=== PATIENT | female | born 1985 | race Two or more races ===

== ENCOUNTER → 2017-12-31 | Emergency (ER) | payer OTHER ==
[~2017-12-31] VITALS: Ht 165.1 cm; Wt 88.5 kg
[~2017-12-31] MED LIST: AUGMENTIN1 TAB.CHE3; PEPCID20 MG; PRENATAL + DHA1 EAC1
== END | disposition home or self-care (01) ==
LOC: ER 08:46
DX: O26.892 Other specified pregnancy related conditions, second trimester (principal); O99.342 Other mental disorders complicating pregnancy, second trimester; R42 Dizziness and giddiness; R51 Headache; F41.1 Generalized anxiety disorder; Z34.82 Encounter for supervision of other normal pregnancy, second trimester

== ENCOUNTER 2018-05-31 05:55 | Inpatient (IN) | payer OTHER ==
[~2018-05-31] VITALS: Ht 165.1 cm; Wt 3.2 kg
[2018-06-03] MEDS ORDERED: ACETAMINOPHEN500 M1 PO (13:09)
[2018-06-03] MEDS ORDERED: IBUPROFEN800 MG PO (13:09)
== END 2018-06-03 14:41 | DRG 785 ==
LOC: O/R 05:55 → OB/GYN 05:55 → SURH 10:00 → OB/GYN 13:14
PROVIDERS: ADMIT Obstetrics & Gynecology
PROC: 0UL70ZZ Occlusion of Bilateral Fallopian Tubes, Open Approach (ICD-10-PCS; 2018-05-31)
PROC: 4A1HXCZ Monitoring of Products of Conception, Cardiac Rate, External Approach (ICD-10-PCS; 2018-05-31)
PROC: 10D00Z1 Extraction of Products of Conception, Low, Open Approach (ICD-10-PCS; principal; 2018-05-31 10:00)
DX: O82 Encounter for cesarean delivery without indication (principal); Z3A.38 38 weeks gestation of pregnancy; Z37.0 Single live birth; Z30.2 Encounter for sterilization

== ENCOUNTER 2018-06-23 12:08 | Emergency (ER) | payer OTHER ==
[~2018-06-23] VITALS: Ht 165.1 cm; Wt 75.3 kg
[~2018-06-23 12:08] MED LIST changes: +ACETAMINOPHEN500 M1 PO; +IBUPROFEN800 MG PO
== END 2018-06-23 13:57 | disposition home or self-care (01) ==
LOC: ER 12:08
DX: T23.201A Burn of second degree of right hand, unspecified site, initial encounter (principal); X11.8XXA Contact with other hot tap-water, initial encounter; Y93.89 Activity, other specified; Y92.89 Other specified places as the place of occurrence of the external cause; Y99.8 Other external cause status

== ENCOUNTER 2019-02-09 09:49 | Emergency (ER) | payer OTHER ==
[~2019-02-09] VITALS: Ht 165.1 cm; Wt 86.2 kg
[2019-02-09] MEDS ORDERED: ZANAFLEX2 M1 (10:00)
[2019-02-09] MEDS ORDERED: CELEBREX50 MG (10:00)
== END 2019-02-09 14:25 | disposition home or self-care (01) ==
LOC: ER 09:49
DX: R10.12 Left upper quadrant pain (principal); N39.0 Urinary tract infection, site not specified

== ENCOUNTER 2019-02-12 08:20 | Inpatient (IN) | payer OTHER ==
[~2019-02-12] VITALS: Ht 165.1 cm; Wt 86.2 kg
[~2019-02-12 08:20] MED LIST changes: +CELEBREX50 MG; +ZANAFLEX2 M1
--- NOTE | 2019-02-12 08:31 | NUR ---
PACIENTE ALERTA Y ORIENTADA X3 REFIERE VOMITOS DESDE EL LUNES, CON DOS EPISODIOS HACEN 30 MINUTOS, SE UBICA EN AREA DE OBSERVACION PARA SER EVALUADA POR MEDICO.
--- NOTE | 2019-02-12 09:16 | NUR ---
SE ORIENTA A PTE SOBRE PROCESO DE VENOPUNCION, BETSY DE MUESTRAS, ADMINISTRACION DE MED IV PTE REFIERE ENTENDER INF RE POR RN DE TURNO. PTE SE ORIENTA SOBRE PROCESO DE NPO. PTE SE MANTIENE BAJO OBSERVACION RECIBIENDO TRATAMIENTO MEDICO.
--- NOTE | 2019-02-12 15:18 | NUR ---
SE RECIBE PT ALERTA Y ORIENTADA EN TIEMPO LUGARY PERSONA, AL MMENTO CON [id number] A 125ML/HR IVF PATENTE,.AREA NATALIYA DE EDEMA Y EREITEMA. PT EN BASILIO CON BARANDAS LEEVADAS Y TIMBRE ACCESIBLE. PENDIENTE RE EVALUACION DE MEDICINA INTERNA CON DR Bridgette BLACK.
[2019-02-16] MEDS ORDERED: PEPCID AC20 MG PO (16:35)
[2019-02-16] MEDS ORDERED: INTESTINEX680 M1 PO (16:35)
[2019-02-16] MEDS ORDERED: CEFDINIR300 MG PO (16:35)
== END 2019-02-16 17:50 | disposition home or self-care (01) | DRG 392 ==
LOC: ER 08:20 → SEC-K 18:58 → SURH 02-13 15:49 → MEDJ 02-13 15:55
PROVIDERS: ADMIT Internal Medicine
PROC: BT4JZZZ Ultrasonography of Kidneys and Bladder (ICD-10-PCS; principal; 2019-02-12)
PROC: BW28ZZZ Computerized Tomography (CT Scan) of Head (ICD-10-PCS; 2019-02-12)
DX: K29.00 Acute gastritis without bleeding (principal); N17.8 Other acute kidney failure; B37.41 Candidal cystitis and urethritis; E86.0 Dehydration; E87.8 Other disorders of electrolyte and fluid balance, not elsewhere classified; R42 Dizziness and giddiness; G44.89 Other headache syndrome

== ENCOUNTER 2019-03-24 10:48 | Inpatient (IN) | payer OTHER ==
[~2019-03-24] VITALS: Ht 165.1 cm; Wt 83.5 kg
[~2019-03-24 10:48] MED LIST changes: +CEFDINIR300 MG PO; +INTESTINEX680 M1 PO; +PEPCID AC20 MG PO
[2019-04-02] MEDS ORDERED: ALPRAZOLAM0.25 MG PO (08:01)
[2019-04-02] MEDS ORDERED: Neurin-Sl Tablet Sl SL (08:01)
[2019-04-02] MEDS ORDERED: INTESTINEX680 M1 PO (08:01)
[2019-04-02] MEDS ORDERED: FOLIC ACID1 MG PO (08:01)
[2019-04-02] MEDS ORDERED: LEVAQUIN500 MG PO (08:01)
== END 2019-04-02 13:35 | disposition home or self-care (01) | DRG 690 ==
LOC: ER 10:48 → MEDI 20:49 → MEDJ 20:49 → MEDI 03-25 00:06 → MEDJ 03-26 14:32
PROVIDERS: ADMIT Internal Medicine
PROC: 8E0ZXY6 Isolation (ICD-10-PCS; principal; 2019-03-24)
PROC: BT43ZZZ Ultrasonography of Bilateral Kidneys (ICD-10-PCS; 2019-03-24)
PROC: BW21ZZZ Computerized Tomography (CT Scan) of Abdomen and Pelvis (ICD-10-PCS; 2019-03-24)
DX: N39.0 Urinary tract infection, site not specified (principal); A04.72 Enterocolitis due to Clostridium difficile, not specified as recurrent; E86.0 Dehydration; N76.0 Acute vaginitis; F41.8 Other specified anxiety disorders

== ENCOUNTER 2022-02-02 10:29 | Outpatient (CLI) | payer OTHER ==
[~2022-02-02 10:29] MED LIST changes: +ALPRAZOLAM0.25 MG PO; +FOLIC ACID1 MG PO; +LEVAQUIN500 MG PO; +Neurin-Sl Tablet Sl SL
== END 2022-02-02 10:36 | disposition home or self-care (01) ==
LOC: RAD 10:29
PROVIDERS: ATTEND Psychiatry & Neurology Neurology
DX: M19.90 Unspecified osteoarthritis, unspecified site (principal)

== ENCOUNTER 2022-04-19 09:39 | Emergency (ER) | payer OTHER ==
[~2022-04-19] VITALS: Ht 160 cm; Wt 88.0 kg
[2022-04-19] MEDS ORDERED: BACLOFEN20 MG PO (10:01)
== END 2022-04-19 12:25 | disposition home or self-care (01) ==
LOC: ER 09:39
DX: M54.2 Cervicalgia (principal); V43.52XA Car driver injured in collision with other type car in traffic accident, initial encounter; Y93.9 Activity, unspecified; Y92.413 State road as the place of occurrence of the external cause; M54.50 Low back pain, unspecified; Z88.8 Allergy status to other drugs, medicaments and biological substances; M79.7 Fibromyalgia

== ENCOUNTER 2022-07-05 12:31 | Outpatient (CLI) | payer OTHER ==
[~2022-07-05 12:31] MED LIST changes: +BACLOFEN20 MG PO
== END 2022-07-05 12:35 | disposition home or self-care (01) ==
LOC: SONOGRAMA 12:31
PROVIDERS: ATTEND General Practice
DX: R31.9 Hematuria, unspecified (principal); N20.0 Calculus of kidney; N39.9 Disorder of urinary system, unspecified

== ENCOUNTER 2022-09-06 08:32 | Emergency (ER) | payer OTHER ==
[~2022-09-06] VITALS: Ht 160 cm; Wt 85.3 kg
[2022-09-06] MEDS ORDERED: CELEBREX200MG PO (09:08)
[2022-09-06] MEDS ORDERED: PREGABALIN150 MG PO (09:09)
[2022-09-06] MEDS ORDERED: DULOXETINE HCL40 MG PO (09:10)
[2022-09-06] MEDS ORDERED: RESTORIL30 MG PO (09:10)
[2022-09-06] MEDS ORDERED: DICLOFENAC SODI75 MG PO (10:04)
== END 2022-09-06 10:07 | disposition home or self-care (01) ==
LOC: ER 08:32
DX: M79.675 Pain in left toe(s) (principal); M54.9 Dorsalgia, unspecified; Z88.8 Allergy status to other drugs, medicaments and biological substances; W10.0XXA Fall (on)(from) escalator, initial encounter; Y93.89 Activity, other specified; Y92.018 Other place in single-family (private) house as the place of occurrence of the external cause

== ENCOUNTER → 2022-12-18 | Outpatient (CLI) | payer OTHER ==
[~2022-12-18] MED LIST changes: +CELEBREX200MG PO; +DICLOFENAC SODI75 MG PO; +DULOXETINE HCL40 MG PO; +PREGABALIN150 MG PO; +RESTORIL30 MG PO
== END | disposition home or self-care (01) ==
LOC: RAD 09:51
PROVIDERS: ATTEND Orthopaedic Surgery
DX: M25.572 Pain in left ankle and joints of left foot (principal); M15.8 Other polyosteoarthritis; M25.552 Pain in left hip; M25.551 Pain in right hip

== ENCOUNTER 2023-05-23 16:20 | Emergency (ER) | payer OTHER ==
[~2023-05-23] VITALS: Ht 160 cm; Wt 79.8 kg
[2023-05-23] MEDS ORDERED: ONDANSETRON HCL 2 MG/ML VIAL IV STA (20:09)
[2023-05-23] MEDS ORDERED: 0.9 % SODIUM CHLORIDE 500 ML IV STA (20:09)
[2023-05-23] MEDS ORDERED: BISMUTH SUBSALICYLATE 524 MG/30 ML BLIST.PACK PO STA (20:10)
[2023-05-23] MEDS ORDERED: LOPERAMIDE HCL 2 MG CAPSULE PO STA (20:10)
[2023-05-23 20:40] LABS: HEMOGLOBIN 12.7 g/dL (12.0-15.00); MEAN CELL VOLUME 78.3 fL (80.00-100.00); MEAN CORPUSCULAR HEMOGLOBIN 25.5 pg (27.00-32.0); MEAN CORPUSCULAR HGB CONC 32.5 g/dl (32.0-36.0); PLATELET COUNT 221 K/uL (150-450); RED BLOOD COUNT 4.98 M/uL (4.00-6.00); RED CELL DISTRIBUTION WIDTH 14.6 % (11.5-14.5)
[2023-05-23 20:54] LABS: CALCIUM 8.7 mg/dL (8.5-10.1); CREATININE SERUM 0.64 mg/dL (0.55-1.02); GFR 103.85; POTASSIUM 4.26 mEq/L (3.5-5.1)
== END 2023-05-24 01:07 | disposition home or self-care (01) ==
LOC: ER 16:20
DX: K52.9 Noninfective gastroenteritis and colitis, unspecified (principal); Z88.8 Allergy status to other drugs, medicaments and biological substances

== ENCOUNTER 2024-01-29 12:52 | Emergency (ER) | payer OTHER ==
[~2024-01-29] VITALS: Ht 162.6 cm; Wt 85.3 kg
[2024-01-29] MEDS ORDERED: KETOROLAC TROMETHAMINE 30 MG VIAL IM ONE (18:00)
== END 2024-01-29 22:15 | disposition home or self-care (01) ==
LOC: ER 12:52
DX: S93.402A Sprain of unspecified ligament of left ankle, initial encounter (principal); X58.XXXA Exposure to other specified factors, initial encounter; Y93.K1 Activity, walking an animal; Y92.89 Other specified places as the place of occurrence of the external cause; Y99.9 Unspecified external cause status; Z88.8 Allergy status to other drugs, medicaments and biological substances

== ENCOUNTER 2024-08-06 10:15 | Outpatient (CLI) | payer OTHER | END 2024-08-06 10:19 | disposition home or self-care (01) | LOC: SONOGRAMA 10:15 | PROVIDERS: ATTEND Orthopaedic Surgery | DX: M25.572 Pain in left ankle and joints of left foot (principal); M76.72 Peroneal tendinitis, left leg ==